=== PATIENT | female | born 1985 | race African-American/Black ===

== ENCOUNTER 2016-12-25 09:05 | Emergency (ER) | payer OTHER ==
--- NOTE | 2016-12-25 09:25 | PHYS DOC ---
Past Medical History Past Medical History: Hypertension Past Surgical History: Cholecystectomy, Additional Past Surgical Histo: (L) WRIST REPAIR Alcohol Use: Rarely Drug Use: None Adult General Chief Complaint Chief Complaint: LOWEREXTREMITY INJURY HPI HPI Patient is a 31 year old female with history of hypertension who presents with left hip pain radiating to the left lower extremity that began today after she fell going down some steps, patient states her left hip went the opposite direction when she fell. Patient describes the pain as sharp. Patient rates the pain as moderate worse on weight bearing. Patient denies any loss of consciousness. Review of Systems Review of Systems Constitutional: Denies fever or chills [] Eyes: Denies change in visual acuity, redness, or eye pain [] HENT: Denies nasal congestion or sore throat [] Respiratory: Denies cough or shortness of breath [] Cardiovascular: No additional information not addressed in HPI [] GI: Denies abdominal pain, nausea, vomiting, bloody stools or diarrhea [] : Denies dysuria or hematuria [] Musculoskeletal: Left hip pain Integument: Denies rash or skin lesions [] Neurologic: Denies headache, focal weakness or sensory changes [] Endocrine: Denies polyuria or polydipsia [] Allergies Allergies Allergies Coded Allergies Type Severity Reaction Last Updated Verified No Known Drug Allergies 06/22/14 No Physical Exam Physical Exam Constitutional: Well developed, well nourished, no acute distress, non-toxic appearance. [] HENT: Normocephalic, atraumatic, bilateral external ears normal, oropharynx moist, no oral exudates, nose normal. [] Eyes: PERRLA, EOMI, conjunctiva normal, no discharge. [] Neck: Normal range of motion, no tenderness, supple, no stridor. [] Cardiovascular:Heart rate regular rhythm, no murmur [] Lungs & Thorax: Bilateral breath sounds clear to auscultation [] Abdomen: Bowel sounds normal, soft, no tenderness, no masses, no pulsatile masses. [] Skin: Warm, dry, no erythema, no rash. [] Back: No tenderness, no CVA tenderness. [] Extremities: Overweight patient, exam very difficult due to her weight. Left hip with no obvious deformity. Tenderness diffusely on the medial and lateral aspect of the left hip. Left knee with no obvious deformity.+2 left pedal pulse. Cap refill less than 2 seconds left lower extremity. Neurologic: Alert and oriented X 3, normal motor function, normal sensory function, no focal deficits noted. [] Psychologic: Affect normal, judgement normal, mood normal. [] Current Patient Data Vital Signs Vital Signs Date Time Temp Pulse Resp B/P (MAP) Pulse Ox O2 Delivery O2 Flow Rate FiO2 12/25/16 09:27 98.7 83 18 98 Room Air 98.7 EKG EKG [] Radiology/Procedures Radiology/Procedures [] Course & Med Decision Making Course & Med Decision Making Pertinent Labs and Imaging studies reviewed. (See chart for details) Patient is in the ED with complaints of left hip pain after falling today. Her blood pressure was 190s/104. Patient states she has her blood pressure medicine in her car. She states she normally takes it on her way to work. She did not take it this morning. Patient states she prefers to take her own medicine so that she doesn't get charged more for medicine in the ED. Left hip and femur x-rays including pelvic interpreted by radiologist are negative for any acute findings. Patient was discharged with naproxen and Flexeril. Follow-up orthopedic doctor in one week. Dragon Disclaimer Dragon Disclaimer This electronic medical record was generated, in whole or in part, using a voice recognition dictation system. Departure Departure Impression: Primary Impression: Fall from standing Additional Impression: Sprain of left hip Disposition: 01 HOME, SELF-CARE Condition: STABLE Referrals: UNKNOWN PCP NAME (PCP) DANIA NICHOLSON II, MD follow up in one week Patient Instructions: Fall Prevention and Home Safety, Hip Exercises, Generic, SportsMed Additional Instructions: You were seen for left hip sprain. Ice and elevate the extremity. Take the prescribed medicines as needed for pain. Do not drive on the cyclobenzaprine. Follow-up with orthopedic doctor provided in one week if pain continues. Scripts Naproxen (NAPROXEN) 500 Mg Tablet. 1 TAB PO BID, #60 TAB 2 Refills Prov: CESARIOSHADIA APRN 12/25/16 Cyclobenzaprine Hcl (CYCLOBENZAPRINE HCL) 10 Mg Tablet 1 TAB PO TID, #30 TAB Prov: SHADIA NASSAR APRN 12/25/16 Problem Qualifiers Primary Impression: Fall from standing Encounter type: initial encounter Qualified Codes: W19.XXXA - Unspecified fall, initial encounter Additional Impression: Sprain of left hip Encounter type: initial encounter Qualified Codes: S73.102A - Unspecified sprain of left hip, initial encounter SHADIA NASSAR [employer] INBOARD/OUTBOARD Dec 25, 2016 09:25
[2016-12-25 09:27] VITALS: BP 195/109
--- NOTE | 2016-12-25 11:02 | RAD ---
Pelvis with left hip, 3 views, 12/25/2016: History: Fall, pain No fracture or dislocation is identified. The hip joints are well maintained. IMPRESSION: No acute abnormality is detected. Left femur, 2 views, 12/25/2016: No fracture is identified. There are moderate degenerative changes at the knee joint and the patellofemoral articulation. IMPRESSION: No acute left femoral abnormality is detected.
[2016-12-25] MEDS ORDERED: CYCL10TA2 PO (11:36)
[2016-12-25] MEDS ORDERED: NAPR500T8 PO (11:36)
== END 2016-12-25 12:11 | disposition home or self-care (01) ==
LOC: ER 09:05
DX: S73.102A Unspecified sprain of left hip, initial encounter (principal); I10 Essential (primary) hypertension; Z90.49 Acquired absence of other specified parts of digestive tract; W10.9XXA Fall (on) (from) unspecified stairs and steps, initial encounter; Y93.89 Activity, other specified; Y92.89 Other specified places as the place of occurrence of the external cause; Y99.8 Other external cause status
CPT/HCPCS: 73502; 73552; 99284

== ENCOUNTER → 2017-09-05 | Outpatient (CLI) | payer OTHER | END | disposition home or self-care (01) | LOC: KCIC US 15:13 | DX: N83.201 Unspecified ovarian cyst, right side (principal); D25.9 Leiomyoma of uterus, unspecified; N88.8 Other specified noninflammatory disorders of cervix uteri; I11.0 Hypertensive heart disease with heart failure; I50.31 Acute diastolic (congestive) heart failure | CPT/HCPCS: 76830; 76856 ==

== ENCOUNTER 2018-05-12 16:58 | Emergency (ER) | payer BC, OTHER ==
[~2018-05-12] VITALS: Ht 175.3 cm; Wt 170.6 kg
[~2018-05-12 16:58] MED LIST: CARV6.2511 PO; CLIN300C8 PO; CYCL10TA2 PO; DIAZ5TAB4 PO; FURO-68 PO; HYDR-2761 PO; LISI10TA2 PO; NAPR500T8 PO; ONDA4TAB10 SL; POTA10TA6 PO
[2018-05-12] MEDS ORDERED: IV NORMAL SALINE 1000ML BAG 1,000 ML IV ONE (17:30)
[2018-05-12] MEDS ORDERED: fentaNYL PF VIAL 100 MCG/2 ML VIAL IV ONE (17:45)
[2018-05-12] MEDS ORDERED: ONDANSETRON PF 4 MG/2 ML VIAL. IV ONE ×2 (17:45→19:00)
[2018-05-12 17:56] LABS: BASO # 0.1 x10^3/uL (0.0-0.2); BASO % 1 % (0-3); EOS # 0.1 x10^3/uL (0.0-0.7); EOS % 1 % (0-3); HEMATOCRIT 36.5 % (36.0-47.0); HEMOGLOBIN 11.9 g/dL (12.0-15.5); LYMPH # 1.7 x10^3/uL (1.0-4.8); LYMPH % 17 % (24-48); MEAN CORPUSCULAR HEMOGLOBIN 23 pg (25-35); MEAN CORPUSCULAR HGB CONC 33 g/dL (31-37); MEAN CORPUSCULAR VOLUME 70 fL (79-100); MONO # 0.3 x10^3/uL (0.0-1.1); MONO % 3 % (0-9); NEUT # 8.2 x10^3uL (1.8-7.7); NEUT % 79 % (31-73); PLATELET COUNT 305 x10^3/uL (140-400); RED BLOOD COUNT 5.21 x10^6/uL (3.50-5.40); RED CELL DISTRIBUTION WIDTH 18.7 % (11.5-14.5); WHITE BLOOD COUNT 10.4 x10^3/uL (4.0-11.0)
[2018-05-12 18:05] LABS: CALCIUM 9.4 mg/dL (8.5-10.1); CREATININE 0.9 mg/dL (0.6-1.0); GFR 86.7; POTASSIUM 3.9 mmol/L (3.5-5.1)
[2018-05-12 18:11] LABS: ALBUMIN 3.5 g/dL (3.4-5.0); ALBUMIN/GLOBULIN RATIO 0.7 (1.0-1.7); TOTAL BILIRUBIN 0.6 mg/dL (0.2-1.0); TOTAL PROTEIN 8.2 g/dL (6.4-8.2)
[2018-05-12] MEDS ORDERED: IOHEXOL 300 MG/ML 100ML VIAL. IV ONE (18:30)
[2018-05-12] MEDS ORDERED: IOHEXOL 240 MG/ML 50ML VIAL. PO ONE (18:30)
[2018-05-12] MEDS ORDERED: CONTRAST GIVEN. MC PRN (18:30)
[2018-05-12 18:55] LABS: BILIRUBIN,URINE NEGATIVE (NEG); CLARITY,URINE CLEAR; COLOR,URINE AMBER; NITRITE,URINE NEGATIVE (NEG); PROTEIN,URINE NEGATIVE (NEG-TRACE)
[2018-05-12 19:03] LABS: BACTERIA,URINE 0 /HPF (0-FEW); SQUAMOUS EPITHELIAL CELL,UR MOD /LPF
[2018-05-12 19:31] LABS: HYPOCHROMIA MOD; PLT ESTIMATE ADEQUATE (ADEQUATE)
[2018-05-12 19:32] LABS: ANISOCYTOSIS SLIGHT; MICROCYTOSIS MOD
[2018-05-12 19:51] LABS: AMYLASE 90 U/L (25-115); LIPASE 209 U/L (73-393)
[2018-05-12 20:15] VITALS: BP 129/70
--- NOTE | 2018-05-12 20:20 | RAD ---
CT SCAN OF THE ABDOMEN AND PELVIS WITH IV CONTRAST. History: Severe epigastric pain and nausea vomiting for 2 weeks Comparison: October 27, 2007. Procedure: Contiguous axial images of the abdomen and pelvis were performed after the administration of 75 cc of Omni 300 IV contrast and oral contrast. CT Abdomen with contrast: Findings: Liver: Unremarkable Spleen: Unremarkable Pancreas: Unremarkable Adrenal Glands: Unremarkable Kidneys: Unremarkable There is no mass or lymphadenopathy. There is no free air. There is no free fluid. There is a comparable study. The appendix is normal. There are multiple mildly enlarged mesenteric and retroperitoneal lymph nodes on the right and there is a lymph node which measures 14 mm in its short axis. CT Pelvis with Contrast: Findings: The urinary bladder appears normal. There is no free fluid. There is no additional lymphadenopathy. Impression: Right-sided lymphadenopathy in the abdomen could be lymphadenitis but appears unchanged. Stable appearance of the abdomen and pelvis. PQRS Compliance Statement: One or more of the following individualized dose reduction techniques were utilized for this examination: 1. Automated exposure control 2. Adjustment of the mA and/or kV according to patient size 3. Use of iterative reconstruction technique Electronically signed by: Juve Moreno III, MD (05/12/2018 8:16 PM) [id number]
[2018-05-12] MEDS ORDERED: ONDA4TAB7 PO (20:35)
--- NOTE | 2018-05-12 20:35 | PHYS DOC ---
Past Medical History Past Medical History: Hypertension Past Surgical History: Cholecystectomy, Additional Past Surgical Histo: (L) WRIST REPAIR Alcohol Use: Rarely Drug Use: None Adult General Chief Complaint Chief Complaint: ABDOMINAL PAIN HPI HPI Patient is a 32 year old [f__sex] who presents with [] Review of Systems Review of Systems Constitutional: Denies fever or chills [] Eyes: Denies change in visual acuity, redness, or eye pain [] HENT: Denies nasal congestion or sore throat [] Respiratory: Denies cough or shortness of breath [] Cardiovascular: No additional information not addressed in HPI [] GI: Denies abdominal pain, nausea, vomiting, bloody stools or diarrhea [] : Denies dysuria or hematuria [] Musculoskeletal: Denies back pain or joint pain [] Integument: Denies rash or skin lesions [] Neurologic: Denies headache, focal weakness or sensory changes [] Endocrine: Denies polyuria or polydipsia [] All other systems were reviewed and found to be within normal limits, except as documented in this note. Current Medications Current Medications Current Medications Medications (Trade) Dose Ordered Sig/Miguel Start Time Stop Time Status Last Admin Dose Admin Fentanyl Citrate (Fentanyl 2ml Vial) 50 mcg 1X ONCE 05/12/18 17:45 05/12/18 17:46 DC 05/12/18 17:55 50 MCG Info (CONTRAST GIVEN -- Rx MONITORING) 1 each PRN DAILY PRN 05/12/18 18:30 05/14/18 18:29 Iohexol (Omnipaque 240 Mg/ml) 30 ml 1X ONCE 05/12/18 18:30 05/12/18 18:31 DC 05/12/18 18:30 30 ML Iohexol (Omnipaque 300 Mg/ml) 75 ml 1X ONCE 05/12/18 18:30 05/12/18 18:31 DC 05/12/18 18:30 75 ML Ondansetron HCl (Zofran) 4 mg 1X ONCE 05/12/18 19:00 05/12/18 19:01 DC 05/12/18 18:57 4 MG Sodium Chloride 1,000 ml @ 1,000 mls/hr 1X ONCE 05/12/18 17:30 05/12/18 18:29 DC 05/12/18 17:54 1,000 MLS/HR Allergies Allergies Allergies Coded Allergies Type Severity Reaction Last Updated Verified No Known Drug Allergies 06/22/14 No Physical Exam Physical Exam Constitutional: Well developed, well nourished, no acute distress, non-toxic appearance. [] HENT: Normocephalic, atraumatic, bilateral external ears normal, oropharynx moist, no oral exudates, nose normal. [] Eyes: PERRLA, EOMI, conjunctiva normal, no discharge. [] Neck: Normal range of motion, no tenderness, supple, no stridor. [] Cardiovascular:Heart rate regular rhythm, no murmur [] Lungs & Thorax: Bilateral breath sounds clear to auscultation [] Abdomen: Bowel sounds normal, soft, no tenderness, no masses, no pulsatile masses. [] Skin: Warm, dry, no erythema, no rash. [] Back: No tenderness, no CVA tenderness. [] Extremities: No tenderness, no cyanosis, no clubbing, ROM intact, no edema. [] Neurologic: Alert and oriented X 3, normal motor function, normal sensory function, no focal deficits noted. [] Psychologic: Affect normal, judgement normal, mood normal. [] Current Patient Data Vital Signs Vital Signs Date Time Temp Pulse Resp B/P (MAP) Pulse Ox O2 Delivery O2 Flow Rate FiO2 05/12/18 17:55 18 96 Room Air 05/12/18 17:16 98.3 117 172/98 (122) 98.3 Lab Values Laboratory Tests Test 05/12/18 17:40 05/12/18 18:45 05/12/18 18:47 White Blood Count 10.4 x10^3/uL (4.0-11.0) Red Blood Count 5.21 x10^6/uL (3.50-5.40) Hemoglobin 11.9 g/dL (12.0-15.5) L Hematocrit 36.5 % (36.0-47.0) Mean Corpuscular Volume 70 fL (79-100) L Mean Corpuscular Hemoglobin 23 pg (25-35) L Mean Corpuscular Hemoglobin Concent 33 g/dL (31-37) Red Cell Distribution Width 18.7 % (11.5-14.5) H Platelet Count 305 x10^3/uL (140-400) Neutrophils (%) (Auto) 79 % (31-73) H Lymphocytes (%) (Auto) 17 % (24-48) L Monocytes (%) (Auto) 3 % (0-9) Eosinophils (%) (Auto) 1 % (0-3) Basophils (%) (Auto) 1 % (0-3) Neutrophils # (Auto) 8.2 x10^3uL (1.8-7.7) H Lymphocytes # (Auto) 1.7 x10^3/uL (1.0-4.8) Monocytes # (Auto) 0.3 x10^3/uL (0.0-1.1) Eosinophils # (Auto) 0.1 x10^3/uL (0.0-0.7) Basophils # (Auto) 0.1 x10^3/uL (0.0-0.2) Platelet Estimate Adequate (ADEQUATE) Hypochromasia Mod Anisocytosis Slight Microcytosis Mod Sodium Level 140 mmol/L (136-145) Potassium Level 3.9 mmol/L (3.5-5.1) Chloride Level 102 mmol/L (98-107) Carbon Dioxide Level 27 mmol/L (21-32) Anion Gap 11 (6-14) Blood Urea Nitrogen 17 mg/dL (7-20) Creatinine 0.9 mg/dL (0.6-1.0) Estimated GFR (Cockcroft-Gault) 86.7 BUN/Creatinine Ratio 19 (6-20) Glucose Level 130 mg/dL (70-99) H Calcium Level 9.4 mg/dL (8.5-10.1) Total Bilirubin 0.6 mg/dL (0.2-1.0) Aspartate Amino Transferase (AST) 263 U/L (15-37) H Alanine Aminotransferase (ALT) 181 U/L (14-59) H Alkaline Phosphatase 139 U/L (46-116) H Total Protein 8.2 g/dL (6.4-8.2) Albumin 3.5 g/dL (3.4-5.0) Albumin/Globulin Ratio 0.7 (1.0-1.7) L Amylase Level 90 U/L (25-115) Lipase 209 U/L (73-393) Urine Collection Type Unknown Urine Color Leora Urine Clarity Clear Urine pH 6.0 Urine Specific [facility] >=1.030 Urine Protein Negative mg/dL (NEG-TRACE) Urine Glucose (UA) Negative mg/dL (NEG) Urine Ketones (Stick) Negative mg/dL (NEG) Urine Blood Large (NEG) Urine Nitrite Negative (NEG) Urine Bilirubin Negative (NEG) Urine Urobilinogen Dipstick 2.0 mg/dL (0.2 mg/dL) Urine Leukocyte Esterase Negative (NEG) Urine RBC 11-20 /HPF (0-2) Urine WBC 1-4 /HPF (0-4) Urine Squamous Epithelial Cells Mod /LPF Urine Bacteria 0 /HPF (0-FEW) Urine Mucus Mod /LPF POC Urine HCG, Qualitative Hcg negative (Negative) Laboratory Tests 05/12/18 17:40 Laboratory Tests 05/12/18 17:40 EKG EKG [] Radiology/Procedures Radiology/Procedures [] Course & Med Decision Making Course & Med Decision Making Pertinent Labs and Imaging studies reviewed. (See chart for details) [] Dragon Disclaimer Dragon Disclaimer This electronic medical record was generated, in whole or in part, using a voice recognition dictation system. Departure Departure Impression: Primary Impression: Nausea & vomiting Additional Impression: Transaminitis Disposition: 01 HOME, SELF-CARE Condition: STABLE Referrals: SHAJI TERRY (PCP) Patient Instructions: Liver Panel, Nausea and Vomiting Additional Instructions: Follow-up with your primary care provider for a recheck of your liver enzymes. Do not take Tylenol. Use the Zofran to increase fluids and rest. If worsening return to the emergency department. Scripts Ondansetron Hcl (ZOFRAN) 4 Mg Tablet 1 TAB PO Q6HRS for nausea, #20 TAB Prov: CHIOMA TODD APRN 05/12/18 Problem Qualifiers CHIOMA TODD APRN May 12, 2018 20:35
== END 2018-05-12 20:42 | disposition home or self-care (01) ==
LOC: ER 16:58
DX: R11.2 Nausea with vomiting, unspecified (principal); R74.0 Nonspecific elevation of levels of transaminase and lactic acid dehydrogenase [LDH]; I10 Essential (primary) hypertension; Z90.49 Acquired absence of other specified parts of digestive tract
CPT/HCPCS: 36415; 74177; 80053; 81001; 81025; 82150; 83690; 85025; 96361; 96374; 96375; 96376; 99284; J2405; J3010; J7030; Q9966; Q9967

== ENCOUNTER → 2018-06-09 | Outpatient (CLI) | payer BC ==
[2018-05-12 20:15] VITALS: BP 129/70
[~2018-06-09] MED LIST changes: +ONDA4TAB7 PO
--- NOTE | 2018-06-09 16:11 | RAD ---
PELVIS W/TV Clinical Indication: menorrhagia with irregular cycle. Comparison: CT abdomen and pelvis with contrast, May 12, 2018. TECHNIQUE: Real-time ultrasound imaging of the pelvis using transabdominal and transvaginal window is performed. Findings: There are a couple of 5 mm nabothian cysts. The uterus is anteverted. The uterus measures 10.8 x 7.6 x 6.5 cm. The myometrium posteriorly is heterogeneous, cannot exclude a fibroid measuring up to 3.5 cm. The endometrial stripe measures 10 mm, normal for patient age. There is normal blood flow in the ovaries. The ovaries are symmetric in size. There is a right follicle measuring 12 mm. No pelvic free fluid is seen. No evidence of adnexal mass. IMPRESSION: 1. The endometrial stripe is normal. 2. Cannot exclude posterior uterine fibroid. 3. Small nabothian cysts. Electronically signed by: Rafat Xiao MD (06/09/2018 4:07 PM) [id number]
== END | disposition home or self-care (01) ==
LOC: US 14:20
PROVIDERS: ATTEND Registered Nurse
DX: N88.8 Other specified noninflammatory disorders of cervix uteri (principal)
CPT/HCPCS: 76830; 76856

== ENCOUNTER → 2018-07-31 | Outpatient (CLI) | payer BC ==
--- NOTE | 2018-07-31 15:59 | CARD ---
MR#: [id number] Date of Study: 07/31/2018 Ordering Physician: MISTY MATUTE, Referring Physician: MISTY MATUTE, Tech: Radha Proctor APPROVED REPORT EXAM: Two-dimensional and M-mode echocardiogram with Doppler and color Doppler. Other Information Quality : AverageHR: 88bpm Rhythm : NSRTechnically limited study due to body habitus. INDICATION Murmur Heart Failure RISK FACTORS Hypertension 2D DIMENSIONS RVDd2.6 (2.9-3.5cm)Left Atrium(2D)3.4 (1.6-4.0cm) IVSd1.2 (0.7-1.1cm)Aortic Root(2D)2.9 (2.0-3.7cm) LVDd5.5 (3.9-5.9cm)LVOT Diameter2.0 (1.8-2.4cm) PWd1.1 (0.7-1.1cm)LVDs3.5 (2.5-4.0cm) FS (%) 36.1 %SV95.3 ml Aortic Valve AoV Peak Robetr.143.6cm/sAoV VTI29.6cm AO Peak GR.8.2mmHgLVOT Peak Robert.114.2cm/s LVOT VTI 26.69cmAO Mean GR.6mmHg ANTHONY (VMAX)1.78or6VDO (VTI)2.83cm2 Mitral Valve MV E Uptvwujo35.7cm/sMV DECEL [id number] MV A Pawstudv27.1cm/sMV ATZ41zn E/A Ratio1.5MVA (PHT)4.07cm2 TDI E/Lateral E'8.2E/Medial E'9.7 Pulmonary Valve PV Peak Zcfwsaiy759.9cm/sPV Peak Grad.5mmHg Tricuspid Valve TR P. Jtumcjud135tv/sRAP QGKEMYDV8xcEz TR Peak Gr.93zvAdFKDB44ovZe Pulmonary Vein S1 Hytrlsdi30.7cm/sD2 Ogemhszd50.3cm/s PVa mqjqjdbv191bubi LEFT VENTRICLE The left ventricle is normal size. There is normal left ventricular wall thickness. The left ventricu lar systolic function is normal and the ejection fraction is within normal range. The Ejection Fracti on is 55-60%. There is normal LV segmental wall motion. Transmitral Doppler flow pattern is Grade II- pseudonormal filling dynamics. RIGHT VENTRICLE The right ventricle is normal size. There is normal right ventricular wall thickness. The right ventr icular systolic function is normal. ATRIA The left atrium size is normal. The right atrium size is normal. The interatrial septum is intact wit h no evidence for an atrial septal defect or patent foramen ovale as noted on 2-D or Doppler imaging. AORTIC VALVE The aortic valve is normal in structure and function. Doppler and Color Flow revealed no significant aortic regurgitation. There is no significant aortic valvular stenosis. MITRAL VALVE The mitral valve is normal in structure and function. There is no evidence of mitral valve prolapse. There is no mitral valve stenosis. Doppler and Color-flow revealed trace mitral regurgitation. TRICUSPID VALVE The tricuspid valve is normal in structure and function. Doppler and Color Flow revealed trace tricus pid regurgitation with an estimated PAP of 34 mmHg. There is no tricuspid valve prolapse or vegetatio n. There is no tricuspid valve stenosis. PULMONIC VALVE The pulmonic valve is not well visualized. Doppler and Color Flow revealed no pulmonic valvular regur gitation. GREAT VESSELS The aortic root is normal in size. The IVC is normal in size and collapses >50% with inspiration. PERICARDIAL EFFUSION There is no evidence of significant pericardial effusion. Critical Notification Critical Value: No <Conclusion> The left ventricle is normal size. The left ventricular systolic function is normal and the ejection fraction is within normal range. The Ejection Fraction is 55-60%. There is no significant aortic valvular stenosis. Doppler and Color Flow revealed no significant aortic regurgitation. Doppler and Color-flow revealed trace mitral regurgitation. Doppler and Color Flow revealed trace tricuspid regurgitation with an estimated PAP of 34 mmHg. Signed by : Misty Matute MD Electronically Approved : 07/31/2018 15:58:54
== END | disposition home or self-care (01) ==
LOC: ECHO 12:51
PROVIDERS: ATTEND Internal Medicine Cardiovascular Disease
DX: I11.0 Hypertensive heart disease with heart failure (principal); I50.32 Chronic diastolic (congestive) heart failure
CPT/HCPCS: 93306

== ENCOUNTER → 2018-10-29 | Outpatient (CLI) | payer BC ==
[~2018-10-29] MED LIST changes: +ACET500T68 PO; +AZIT250T PO; +DOCU-109 PO; +FERR325T14 PO; +GABA300C18 PO; +IBUP-1027 PO; +OXYC1TAB15 PO
[2018-10-29 10:58] LABS: BASO % 1 % (0-3); EOS # 0.1 x10^3/uL (0.0-0.7); EOS % 1 % (0-3); HEMOGLOBIN 10.6 g/dL (12.0-15.5); LYMPH # 2.4 x10^3/uL (1.0-4.8); LYMPH % 31 % (24-48); MEAN CORPUSCULAR HEMOGLOBIN 22 pg (25-35); MEAN CORPUSCULAR HGB CONC 32 g/dL (31-37); MEAN CORPUSCULAR VOLUME 68 fL (79-100); MONO # 0.4 x10^3/uL (0.0-1.1); MONO % 5 % (0-9); NEUT # 4.8 x10^3uL (1.8-7.7); NEUT % 62 % (31-73); PLATELET COUNT 299 x10^3/uL (140-400); RED BLOOD COUNT 4.83 x10^6/uL (3.50-5.40); RED CELL DISTRIBUTION WIDTH 18.3 % (11.5-14.5); WHITE BLOOD COUNT 7.8 x10^3/uL (4.0-11.0)
[2018-10-29 11:39] LABS: PLT ESTIMATE ADEQUATE (ADEQUATE)
[2018-10-29 11:40] LABS: HYPOCHROMIA PRESENT; MICROCYTOSIS PRESENT
--- NOTE | 2018-10-30 10:24 | NUR ---
FAXED PRE-OP CBC REPORT TO 'S OFFICE FOR REVIEW AT 1013 10/30/2018 AND RECEIVED TRANSMITTAL CONFIRMATION.
== END | disposition home or self-care (01) ==
LOC: SURGPAT 09:58
PROVIDERS: ATTEND Obstetrics & Gynecology
DX: Z01.818 Encounter for other preprocedural examination (principal)
CPT/HCPCS: 36415; 85025

== ENCOUNTER 2018-11-05 06:14 | Observation (INO) | payer BC ==
[~2018-11-05] VITALS: Ht 167.6 cm; Wt 161.0 kg
[2018-11-05] VITALS (7 sets, daily range): BP systolic 118–141; BP diastolic 67–77
[~2018-11-05 06:14] MED LIST changes: -AZIT250T PO; +BUPIVACAINE-EPI 0.25%-1:200000 MPF 30 ML VIAL. ONE; -DOCU-109 PO; +ESTROGENS, CONJ VAGINAL CREAM 30GM TUBE. ONE; -GABA300C18 PO; +ISOSULFAN BLUE 50 MG/5 ML VIAL. SQ ONE; +LIDOCAINE 1%/EPI 1:100,000 20 ML VIAL. ONE; -OXYC1TAB15 PO; +SURGICEL HEMOSTAT 4X8 EACH. ONE; +ceFAZolin SODIUM 3 GM in IV DEXTROSE 5% 100ML 100 ML IV PRN
[2018-11-05 06:57] LABS: U PREG PATIENT NEGATIVE (NEG)
[2018-11-05] MEDS ORDERED: ONDANSETRON PF 4 MG/2 ML VIAL. IV PRN ×2 (07:00→11:15)
[2018-11-05] MEDS ORDERED: IV RINGERS,LACTATED 1000ML 1,000 ML IV SCH (07:00)
[2018-11-05] MEDS ORDERED: LIDOCAINE 1% PF 2 ML VIAL. ID PRN (07:00)
[2018-11-05] MEDS ORDERED: HYDROmorphone 2 MG/ML VIAL IV PRN (07:00)
[2018-11-05] MEDS ORDERED: MORPHINE SULFATE 2 MG/ML VIAL. IV PRN (07:00)
[2018-11-05] MEDS ORDERED: PROCHLORPERAZINE 10 MG/2 ML VIAL. IV PRN ×2 (07:00→11:15)
[2018-11-05] MEDS ORDERED: fentaNYL PF VIAL 100 MCG/2 ML VIAL IV PRN (07:00)
[2018-11-05] MEDS ORDERED: NEOSTIGMINE METHYLSULFATE 5 MG/5 ML SYRINGE. ONE (07:26)
[2018-11-05] MEDS ORDERED: SEVOFLURANE > 120 MINUTES. IH ONE (07:26)
[2018-11-05] MEDS ORDERED: ROCURONIUM 100 MG/10 ML VIAL. ONE (07:26)
[2018-11-05] MEDS ORDERED: LIDOCAINE 2% PF 5 ML VIAL. ONE (07:27)
[2018-11-05] MEDS ORDERED: MIDAZOLAM HCL/PF 2 MG/2 ML VIAL. ONE (07:27)
[2018-11-05] MEDS ORDERED: DEXAMETHASONE SOD PHOS 4 MG/ML VIAL ONE (07:27)
[2018-11-05] MEDS ORDERED: fentaNYL PF VIAL 100 MCG/2 ML VIAL ONE ×2 (07:27→08:48)
[2018-11-05] MEDS ORDERED: ONDANSETRON PF 4 MG/2 ML VIAL. ONE (07:27)
[2018-11-05] MEDS ORDERED: GLYCOPYRROLATE 1 MG/5 ML VIAL. ONE (07:27)
[2018-11-05] MEDS ORDERED: PROPOFOL 20 ML IV ONE (07:27)
[2018-11-05] MEDS ORDERED: KETOROLAC 30 MG/ML INJ FOR OR. INJ ONE (07:59)
--- NOTE | 2018-11-05 11:06 | PDOC ---
BRIEF OPERATIVE NOTE Date: Nov 05, 2018 Pre-Op Diagnosis 1. Fibroids 2. Menorrhagia 3. Dysmenorrhea Post-Op Diagnosis SAme Procedure Performed [facility] Surgeon Dr. Maximo Reid Anesthesia Type: General Blood Loss 50 ml Specimens Obtained cervix, uterus, chris. fallopian tubes Findings enlarged, fibroid uterus; nml fallopian tubes and ovaries chris. Complications none Operative Note see dictation MISTY RAHMAN Jr, MD Nov 05, 2018 11:06
[2018-11-05] MEDS ORDERED: KETOROLAC 30 MG/ML VIAL. IV PRN ×3 (11:15→14:00)
[2018-11-05] MEDS ORDERED: diphenhydrAMINE HCL 25 MG CAPSULE PO PRN ×2 (11:15→14:00)
[2018-11-05] MEDS ORDERED: diphenhydrAMINE 50 MG/ML VIAL IV PRN (11:15)
[2018-11-05] MEDS ORDERED: 0.9 % SODIUM CHLORIDE 10 ML DISP.SYRIN. IV PRN (11:15)
[2018-11-05] MEDS ORDERED: DEXTROSE 50% 25 GM / 50ML DISP.SYRIN. IV PRN (11:15)
[2018-11-05] MEDS ORDERED: oxyCODONE/APAP 5/325 1 TAB TABLET PO PRN ×2 (11:15→13:30)
[2018-11-05] MEDS ORDERED: ZOLPIDEM 5 MG TABLET. PO PRN ×2 (11:15→14:00)
[2018-11-05] MEDS ORDERED: CALCIUM CARBONATE 500 MG TAB.CHEW PO PRN ×2 (11:15→14:00)
[2018-11-05] MEDS ORDERED: SIMETHICONE 80 MG TAB.CHEW PO PRN (11:15)
[2018-11-05] MEDS: fentaNYL PF VIAL 100 MCG/2 ML VIAL IV PRN ×2 (11:19→11:39)
--- NOTE | 2018-11-05 11:28 | OP ---
DATE OF SURGERY: PREOPERATIVE DIAGNOSES: 1. Fibroids. 2. Menorrhagia. 3. Dysmenorrhea. POSTOPERATIVE DIAGNOSES: 1. Fibroids. 2. Menorrhagia. 3. Dysmenorrhea. PROCEDURE: LAVH. SURGEON: Misty Marsh MD DESIGN ASSISTANT: Keon Reid. ANESTHESIA: GETA. ESTIMATED BLOOD LOSS: 50 mL. COMPLICATIONS: None. FINDINGS: Enlarged fibroid uterus, normal fallopian tubes and ovaries bilaterally. SUMMARY: The patient presented with fibroids, menorrhagia, dysmenorrhea, unresponsive to medical treatment. She was counseled on the risks, benefits and expectations of total laparoscopic hysterectomy via da Yandy robot. She was counseled on risks, benefits and expectations and voiced clear understanding to proceed. DESCRIPTION OF PROCEDURE: The patient was taken to surgery suite and placed in dorsal lithotomy position. She was prepped with Betadine solution for vaginal prep and ChloraPrep for abdominal prep. After adequate anesthesia, weighted speculum and curved Ruthven placed vaginally. The anterior lip of the cervix grasped with single tooth tenaculum. The Cynthia uterine manipulator was then placed. Single tooth tenaculum, weighted speculum and curved Ruthven were then removed. Attention was now placed on abdomen. Small transverse skin incision made just below the umbilicus with a scalpel. Veress needle was then placed through the infraumbilical incision site. The abdomen was allowed to insufflate up to 2 liters CO2 gas. The Veress needle was then removed. An 8 mm camera port was placed and camera was positioned. There were few abdominal wall adhesions. Uterus was enlarged with multiple fibroids. Fallopian tubes and ovaries appeared normal bilaterally. Incision was made in the right and left lower quadrant with a scalpel in which 8 mm trocars were placed. An accessory port placed. A 5 mm size was placed in the right upper quadrant. The robot was then docked. After docking, however, with placement of the camera and instrumentation, due to the patient's body habitus, it limited maneuverability of the robotic arms. Therefore, decision was made to convert to a laparoscopic-assisted vaginal hysterectomy. The robot was then undocked. We did utilize all [address] With the aid of the EnSeal and graspers, the right round ligament was coagulated and dissected. The right fallopian tube was then coagulated and dissected away from the pelvic sidewall. The right broad ligament was coagulated and dissected down through, including the uterine artery. Same process took place with left adnexa. Bladder flap was created using the EnSeal device along with blunt dissection. The pedicles remained hemostatic. We then proceeded vaginally. Weighted speculum and curved Ruthven placed vaginally and anterior and posterior lip of the cervix were grasped with Domenico clamps. The CYNTHIA uterine manipulator was removed. 1% lidocaine with epinephrine was injected in a circumferential manner. Bovie cautery was utilized to circumscribe the cervix. The vaginal mucosa was then dissected away from the lower uterine segment using blunt dissection with a moist Ray-Neel. The parametrial tissue was clamped bilaterally with curved Deondre clamps, cut, and suture ligated. The posterior cul-de-sac was entered sharply with curved Fernandez scissors. The uterosacral ligaments and cardinal ligaments were clamped bilaterally, cut, and suture ligated. The uterus was then retroverted. There was one additional pedicle that was clamped just adjacent to the lower uterine segment, cut, and suture ligated. The cervix, uterus, bilateral fallopian tubes were then removed in their entirety. A modified Tapia's culdoplasty was performed using 0 Vicryl suture, incorporating the uterosacral ligaments bilaterally. The remainder of the vaginal cuff was reapproximated using 2-0 Vicryl suture in a [id number] manner. Moist vaginal packing was placed. We then proceeded abdominally in which the abdomen was allowed to insufflate up to 2 liters CO2 gas. Scope was positioned. The vaginal cuff was visualized and hemostatic. All pedicles were hemostatic. This was verified with suction irrigation, small amount of normal saline was left in posterior cul-de-sac. The trocars were then removed under direct visualization. The abdomen was allowed to deflate as much as possible along with mechanical manipulation. The four skin incisions were reapproximated using 4-0 Vicryl suture in subcuticular manner. 0.25% Marcaine with epinephrine was injected at each incision site. The patient tolerated the procedure well and was taken to recovery room in stable condition. Sponge and needle count correct x 3. MISTY MARSH MD DR: MILLIE/ct JOB#: [id number] / [id number]
[2018-11-05] MEDS: GABAPENTIN 300 MG CAPSULE. PO SCH (13:50)
[2018-11-05] MEDS: oxyCODONE/APAP 5/325 1 TAB TABLET PO PRN (13:50)
[2018-11-05] MEDS ORDERED: GABAPENTIN 300 MG CAPSULE. PO SCH (14:00)
[2018-11-05] MEDS: ONDANSETRON PF 4 MG/2 ML VIAL. IV PRN (16:26)
[2018-11-05] MEDS: IV RINGERS,LACTATED 1000ML 1,000 ML IV SCH (18:24)
[2018-11-05] MEDS ORDERED: OPIUM/BELLADONNA 30/16.2MG SUPP.RECT. PR PRN (18:30)
[2018-11-05] MEDS ORDERED: PROCHLORPERAZINE 10 MG/2 ML VIAL. IV ONE (18:45)
[2018-11-05] MEDS: MORPHINE SULFATE 2 MG/ML VIAL. IV PRN (19:06)
[2018-11-06] MEDS: GABAPENTIN 300 MG CAPSULE. PO SCH ×3 (00:59→17:15)
[2018-11-06 01:00] VITALS: BP 125/71
[2018-11-06] MEDS: MORPHINE SULFATE 2 MG/ML VIAL. IV PRN ×2 (01:00→07:52)
[2018-11-06] MEDS: IV RINGERS,LACTATED 1000ML 1,000 ML IV SCH ×3 (01:01→08:35)
[2018-11-06] MEDS: ONDANSETRON PF 4 MG/2 ML VIAL. IV PRN (01:06)
[2018-11-06 06:15] VITALS: BP 128/71
--- NOTE | 2018-11-06 08:43 | PDOC ---
SURGICAL PROGRESS NOTE Subjective Pt. feeling well. Pain controlled. Vital Signs Vital Signs Date Time Temp Pulse Resp B/P (MAP) Pulse Ox O2 Delivery O2 Flow Rate FiO2 11/06/18 08:22 20 98 Room Air 8.0 11/06/18 06:15 98.4 97 128/71 (90) 98.4 I&O Intake and Output 11/06/18 07:00 Intake Total 2300 ml Output Total 450 ml Balance 1850 ml Intake IV Total 2300 ml Output Urine Total 300 ml Estimated Blood Loss 150 ml PATIENT HAS A MEZA: No General: Alert, Oriented X3, Cooperative HEENT: Atraumatic Lungs: Clear to auscultation Heart: Regular rate Abdomen: Normal bowel sounds, Soft, No masses Extremities: No edema Psych/Mental Status: Mental status NL Labs Laboratory Tests Test 11/05/18 06:16 Urine Test Negative (NEG) Assessment/Plan A: POD#1 s/p IRENE P: D/c home. MISTY RAHMAN Jr, MD Nov 06, 2018 08:43
[2018-11-06] MEDS ORDERED: DOCU-109 PO (08:46)
[2018-11-06] MEDS ORDERED: GABA300C18 PO (08:46)
--- NOTE | 2018-11-06 08:47 | DISCH ---
DISCHARGE INSTRUCTIONS Condition on Discharge Condition on Discharge: Stable Activity After Discharge Activity Instructions for Disc: Activity as tolerated Lifting Instructions after Dis: No heavy lifting Driving Instructions after Dis: No driving for 2 weeks Weight Bearing Status after Di: As tolerated Diet after Discharge Diet after Discharge: Cardiac, Regular Diet Texture: Regular Liquid Texture: Thin Liquid Swallowing Supervision: None needed Wound Incision Care Wound/Incision Care: No wound care needed Contacting the [facility] after DC Call your doctor for: Concerns you may have Follow-Up Follow up with: Dr. Marsh in 2 weeks. Treatment/Equipment after DC Adaptive Equipment Issued: None MISTY MARSH Jr, MD Nov 06, 2018 08:47
[2018-11-06] MEDS: oxyCODONE/APAP 5/325 1 TAB TABLET PO PRN ×3 (09:11→17:15)
[2018-11-06 11:00] VITALS: BP 125/68
[2018-11-06 16:30] VITALS: BP 140/84
--- NOTE | 2018-11-06 17:06 | PATHOLOGY ---
[facility] Accession Number: [id number] . 01 Material submitted: . uterus - CERVIX, UTERUS, BILATERAL FALLOPIAN TUBES . 01 Clinical history: . Fibroids, dysmenorrhea, menorrhagia. . 02 Diagnosis: Uterus and attached bilateral fallopian tubes, laparoscopic hysterectomy and bilateral salpingectomy: - Adenomyosis, uterine corpus, extensive, with myometrial hypertrophy (uterine weight 175 grams). - Endometrial polyp. - Mild chronic cervicitis with focal squamous metaplasia. - Nabothian cyst and cystic tubal metaplasia of endocervix. - Slightly disordered proliferative endometrium. - Leiomyoma, uterine corpus, measuring 1.3 cm. - Congestion of bilateral fallopian tubes. - Paratubal cysts. (JPM:seng; 11/06/2018) QMS/11/06/2018 . 02 Comment: There is no atypia or evidence of malignancy. (JPM:seng; 11/06/2018) . 02 Electronically signed: . Jeovany Shah MD, Pathologist NPI- [id number] . 01 Gross description: . Received in formalin labeled "Mckee, Valeria, cervix, uterus, bilateral fallopian tubes" is a hysterectomy specimen with attached fallopian tubes. The uterus weighs 175 g and measures 11.3 cm from fundus to cervix, 7.3 cm from cornu to cornu, and 5.7 cm from anterior to posterior. The serosa is pink-baumann and smooth. The cervix/lower uterine segment displays a 2.5 x 0.9 cm partial thickness defect, possibly consistent with a surgical defect, on the posterior aspect. This area is inked black. The ectocervix is pink-baumann and glistening with a slitlike cervical os measuring 1.0 cm. The specimen is opened to reveal a 4.0 x 3.5 cm endometrial cavity and a 2.5 x 0.6 cm endocervical canal. The posterior endometrial cavity displays a prominent pink-baumann polyp measuring 3.2 x 2.0 x 0.8 cm. Upon sectioning, the average endometrial thickness is 0.2 cm and the average myometrial thickness is 2.3 cm. One baumann-white whorled leiomyoma is identified measuring 1.3 cm in greatest dimension. The myometrium is focally trabeculated. The right pink-baumann fimbriated fallopian tube measures 7.3 cm in length and 0.5 cm in diameter and the left pink-baumann fimbriated fallopian tube measures 6.5 cm in length and 0.8 cm in diameter. The external surfaces display multiple thin-walled paratubal cysts ranging from 0.5-0.6 cm in greatest dimension. Upon sectioning, the cut surfaces display pinpoint lumens. [employer] sections of the specimen are submitted as follows: A1 12:00 cervix A2 6:00 cervix and partial thickness defect A3 anterior endomyometrium A4 posterior endomyometrium A5 industrial relations representative leiomyoma A6 industrial relations representative right fallopian tube A7 industrial relations representative left fallopian tube A8 attachment site of the uterine polyp A9 remainder of uterine polyp [place] [place]05[place] SYC/SYC . 02 Pathologist provided ICD-10: N84.0, N72, N88.8, D25.9, N85.9, N83.8 . 02 CPT . 703777 Specimen Comment: A courtesy copy of this report has been sent to Specimen Comment: [phone], . Specimen Comment: Report sent to / DR TERRY Performed at: 01 [facility] [address], [place] [id number] MD Jose Roberto Aleman MD Phone: [phone] Performed at: 02 [facility] [address] [place], [place] [id number] MD Jeovany Shah MD Phone: [phone]
--- NOTE | 2018-11-06 18:06 | NUR ---
pt given discharge instructions and scripts.
== END 2018-11-06 18:17 | disposition home or self-care (01) ==
LOC: SURG 06:14 → 3 NORTH 11:37
PROVIDERS: ADMIT Obstetrics & Gynecology; ATTEND Obstetrics & Gynecology
DX: D25.9 Leiomyoma of uterus, unspecified (principal); N92.0 Excessive and frequent menstruation with regular cycle; N94.6 Dysmenorrhea, unspecified; I10 Essential (primary) hypertension; Z98.890 Other specified postprocedural states
CPT/HCPCS: 36415; 58550; 81025; 86850; 86900; 86901; 96374; 96375; 96376; A7015; G0378; G0379; J0780; J1100; J1885; J2001; J2250; J2270; J2405; J2704; J2710; J3010; J3490; J7030; J7120; 88307; Q9968

== ENCOUNTER 2018-11-09 17:13 | Emergency (ER) | payer BC ==
[~2018-11-09] VITALS: Ht 167.6 cm; Wt 136.1 kg
[~2018-11-09 17:13] MED LIST changes: -BUPIVACAINE-EPI 0.25%-1:200000 MPF 30 ML VIAL. ONE; +DOCU-109 PO; -ESTROGENS, CONJ VAGINAL CREAM 30GM TUBE. ONE; +GABA300C18 PO; -ISOSULFAN BLUE 50 MG/5 ML VIAL. SQ ONE; -LIDOCAINE 1%/EPI 1:100,000 20 ML VIAL. ONE; -SURGICEL HEMOSTAT 4X8 EACH. ONE; -ceFAZolin SODIUM 3 GM in IV DEXTROSE 5% 100ML 100 ML IV PRN
[2018-11-09] MEDS ORDERED: ONDANSETRON PF 4 MG/2 ML VIAL. ONE (19:22)
[2018-11-09] MEDS ORDERED: fentaNYL PF VIAL 100 MCG/2 ML VIAL ONE (19:23)
--- NOTE | 2018-11-09 19:34 | PHYS DOC ---
Past Medical History Past Medical History: Hypertension Past Surgical History: Cholecystectomy, , Hysterectomy Additional Past Surgical Histo: (L) WRIST REPAIR Alcohol Use: Rarely Drug Use: None Adult General Chief Complaint Chief Complaint: ABDOMINAL PAIN HPI HPI Patient is a 33 year old female who presents with complaining of abdominal pain after hysterectomy. Patient had laparoscopic hysterectomy on November 05 and he states that she was discharged home without any pain medication. Patient complaining of gradually increasing abdominal pain as a generalized abdominal aching pain with episodes of sharp and cramping pain since she had her surgery. Patient states the pain getting worse today and rated her pain 10 over 10. Patient states she had nausea at arrival to ER and denies vomiting, constipation, diarrhea, urinary symptoms, fever and chills, anorexia, vaginal bleeding, chest pain and shortness of breath. Review of Systems Review of Systems Constitutional: Denies fever or chills [] Eyes: Denies change in visual acuity, redness, or eye pain [] HENT: Denies nasal congestion or sore throat [] Respiratory: Denies cough or shortness of breath [] Cardiovascular: No additional information not addressed in HPI [] GI: Reports abdominal pain, nausea, denies vomiting, bloody stools or diarrhea [] : Denies dysuria or hematuria [] Musculoskeletal: Denies back pain or joint pain [] Integument: Denies rash or skin lesions [] Neurologic: Denies headache, focal weakness or sensory changes [] Endocrine: Denies polyuria or polydipsia [] All other systems were reviewed and found to be within normal limits, except as documented in this note. Current Medications Current Medications Current Medications Medications (Trade) Dose Ordered Sig/Miguel Start Time Stop Time Status Last Admin Dose Admin Ceftriaxone Sodium (Rocephin) 1 gm 1X ONCE 11/09/18 23:30 11/09/18 23:31 DC 11/09/18 23:30 1 GM Fentanyl Citrate (Fentanyl 2ml Vial) 50 mcg 1X ONCE 11/09/18 22:15 11/09/18 22:16 DC 11/09/18 22:50 50 MCG Info (CONTRAST GIVEN -- Rx MONITORING) 1 each PRN DAILY PRN 11/09/18 22:30 11/10/18 00:14 DC Iohexol (Omnipaque 300 Mg/ml) 75 ml 1X ONCE 11/09/18 20:15 11/09/18 20:16 DC Iohexol (Omnipaque 350 Mg/ml) 100 ml 1X ONCE 11/09/18 22:30 11/09/18 22:31 DC 11/09/18 22:32 100 ML Ondansetron HCl (Zofran) 4 mg 1X ONCE 11/09/18 20:15 11/09/18 20:16 DC 11/09/18 19:24 4 MG Allergies Allergies Allergies Coded Allergies Type Severity Reaction Last Updated Verified No Known Drug Allergies 06/22/14 No Physical Exam Physical Exam Constitutional: Well developed, well nourished, moderate distress, non-toxic appearance, morbidly obese. [] HENT: Normocephalic, atraumatic, oropharynx moist. Eyes: PERRLA, EOMI, conjunctiva normal, no discharge. [] Neck: Normal range of motion, no tenderness, supple, no stridor. [] Cardiovascular:Heart rate regular rhythm, no murmur [] Lungs & Thorax: Bilateral breath sounds clear to auscultation [] Abdomen: Bowel sounds normal, soft, no tenderness, no masses, no pulsatile masses. [] Skin: Warm, dry, no erythema, no rash. [] Back: No tenderness, no CVA tenderness. [] Extremities: No tenderness, no cyanosis, no clubbing, ROM intact, no edema. [] Neurologic: Alert and oriented X 3, normal motor function, normal sensory function, no focal deficits noted. [] Psychologic: Affect normal, judgement normal, mood normal. [] Current Patient Data Vital Signs Vital Signs Date Time Temp Pulse Resp B/P (MAP) Pulse Ox O2 Delivery O2 Flow Rate FiO2 11/09/18 23:55 98 18 132/70 (90) 100 Room Air 11/09/18 18:50 99.2 99.2 Lab Values Laboratory Tests Test 11/09/18 18:35 11/09/18 18:50 11/09/18 19:00 11/09/18 20:30 Urine Collection Type Void Urine Color Yellow Urine Clarity Clear Urine pH 6.5 Urine Specific [place] 1.020 Urine Protein Negative mg/dL (NEG-TRACE) Urine Glucose (UA) Negative mg/dL (NEG) Urine Ketones (Stick) Negative mg/dL (NEG) Urine Blood Negative (NEG) Urine Nitrite Negative (NEG) Urine Bilirubin Negative (NEG) Urine Urobilinogen Dipstick 1.0 mg/dL (0.2 mg/dL) Urine Leukocyte Esterase Moderate (NEG) Urine RBC Rare /HPF (0-2) Urine WBC 1-4 /HPF (0-4) Urine Squamous Epithelial Cells Many /LPF Urine Bacteria Many /HPF (0-FEW) Urine Mucus Marked /LPF POC Urine HCG, Qualitative Hcg negative (Negative) Prothrombin Time 13.1 SEC (11.7-14.0) Prothrombin Time INR 1.0 (0.8-1.1) White Blood Count 13.5 x10^3/uL (4.0-11.0) H Red Blood Count 4.73 x10^6/uL (3.50-5.40) Hemoglobin 10.4 g/dL (12.0-15.5) L Hematocrit 32.3 % (36.0-47.0) L Mean Corpuscular Volume 68 fL (79-100) L Mean Corpuscular Hemoglobin 22 pg (25-35) L Mean Corpuscular Hemoglobin Concent 32 g/dL (31-37) Red Cell Distribution Width 18.1 % (11.5-14.5) H Platelet Count 338 x10^3/uL (140-400) Neutrophils (%) (Auto) 84 % (31-73) H Lymphocytes (%) (Auto) 14 % (24-48) L Monocytes (%) (Auto) 2 % (0-9) Eosinophils (%) (Auto) 0 % (0-3) Basophils (%) (Auto) 0 % (0-3) Neutrophils # (Auto) 11.3 x10^3uL (1.8-7.7) H Lymphocytes # (Auto) 1.9 x10^3/uL (1.0-4.8) Monocytes # (Auto) 0.3 x10^3/uL (0.0-1.1) Eosinophils # (Auto) 0.0 x10^3/uL (0.0-0.7) Basophils # (Auto) 0.0 x10^3/uL (0.0-0.2) Platelet Estimate Adequate (ADEQUATE) Hypochromasia Slight Anisocytosis Slight Microcytosis Marked Macrocytosis Sodium Level 135 mmol/L (136-145) L Potassium Level 4.5 mmol/L (3.5-5.1) Chloride Level 100 mmol/L (98-107) Carbon Dioxide Level 28 mmol/L (21-32) Anion Gap 7 (6-14) Blood Urea Nitrogen 14 mg/dL (7-20) Creatinine 1.1 mg/dL (0.6-1.0) H Estimated GFR (Cockcroft-Gault) 68.4 BUN/Creatinine Ratio 13 (6-20) Glucose Level 119 mg/dL (70-99) H Calcium Level 9.0 mg/dL (8.5-10.1) Total Bilirubin 0.5 mg/dL (0.2-1.0) Aspartate Amino Transferase (AST) 11 U/L (15-37) L Alanine Aminotransferase (ALT) 17 U/L (14-59) Alkaline Phosphatase 97 U/L (46-116) Creatine Kinase 36 U/L (26-192) Total Protein 7.4 g/dL (6.4-8.2) Albumin 3.3 g/dL (3.4-5.0) L Albumin/Globulin Ratio 0.8 (1.0-1.7) L Lipase 93 U/L (73-393) Laboratory Tests 11/09/18 20:30 Laboratory Tests 11/09/18 20:30 EKG EKG [] Radiology/Procedures Radiology/Procedures [facility] [address] [place] [address] IMAGING REPORT Signed PATIENT: KIKE PABLO ACCOUNT: [id number] : 1985 LOCATION: ER AGE: 33 SEX: F EXAM STATUS: REG ER ORD. PHYSICIAN: TODD ZAMORA MD REASON: obese, recent hysterectomy, tachycardia PROCEDURE: CT ANGIOGRAPHY CHEST Chest CTA History: Obesity, recent hysterectomy, tachycardia Technique: After bolus of intravenous contrast, CT imaging was performed of the chest. Multiplanar reconstruction images to include MIP reconstruction images are submitted. Exposure: One or more of the following individualized dose reduction techniques were utilized for this examination: 1. Automated exposure control 2. Adjustment of the mA and/or kV according to patient size 3. Use of iterative reconstruction technique. Comparison: None Findings: Exam is limited for evaluation for pulmonary embolic disease due to poor contrast bolus in the pulmonary arteries and there is some motion degradation. No significant central pulmonary embolism is identified although otherwise cannot accurately evaluate for more distal and smaller pulmonary emboli on this exam. There is mild left lower lobe infiltrate, also mild right lower lobe atelectasis. There is no significant pleural or pericardial fluid or pneumothorax. Thoracic aortic caliber is within normal limits without convincing intraluminal flap allowing for artifact. Impression: 1. No convincing central pulmonary embolism is identified although limited evaluation for smaller and distal pulmonary emboli on this exam. 2. There is mild left lower lobe infiltrate, mild right lower lobe atelectasis. Electronically signed by: Osmar Weiss MD (11/09/2018 10:53 PM) [facility] DICTATED and SIGNED BY: OSMAR WEISS MD DATE: 11/09/18 2253 [facility] [address] [place] [address] IMAGING REPORT Signed PATIENT: KIKE PABLO ACCOUNT: [id number] : 1985 LOCATION: ER AGE: 33 SEX: F EXAM STATUS: REG ER ORD. PHYSICIAN: TODD ZAMORA MD REASON: abdominal pain after hysterectomy PROCEDURE: CT ABDOMEN PELVIS WO CONTRAST CT scan of the abdomen and pelvis without contrast 11/09/2018 CLINICAL HISTORY: Abdominal pain. History of recent hysterectomy. TECHNIQUE: Unenhanced, contiguous, 2 mm axial sections were obtained through the abdomen and pelvis. One or more of the following individualized dose reduction techniques were utilized for this study: 1. Automated exposure control. 2. Adjustment of the mA and/or kV according to patient size. 3. Use of iterative reconstruction technique. FINDINGS: Comparison study is dated 05/12/2018. Images through the lung bases demonstrate areas of subsegmental atelectasis involving both lower lobes, left greater than right. The liver, spleen, pancreas, adrenal glands and left kidney are within normal limits. Nonobstructing calculi are seen involving the right kidney which measure 2 to 6 mm in size. Surgical clips are seen within the gallbladder fossa consistent with a cholecystectomy. The abdominal aorta tapers normally. No free fluid or free air is seen within the abdomen. There is no evidence of bowel obstruction. Air and stool is seen throughout the colon. The appendix is well-visualized and is within normal limits. Areas of subcutaneous emphysema are seen scattered throughout the anterior abdominal wall consistent with the patient's history of recent surgery. Images through the pelvis demonstrate the urinary bladder distended with urine. The uterus is not visualized consistent with a hysterectomy. Small collections of air are seen within the lower pelvis. No significant hematoma or definite abnormal fluid collection is seen. Minimal S-shaped curvature of the thoracolumbar spine is seen. Degenerative changes are seen involving lower thoracic and throughout the lumbar spine and both hips. IMPRESSION: Findings are seen consistent with patient's history of recent hysterectomy. No significant acute abnormality is seen. Electronically signed by: Lee Navarro MD (11/09/2018 9:14 PM) [facility] DICTATED and SIGNED BY: LEE NAVARRO MD DATE: 11/09/182113 Course & Med Decision Making Course & Med Decision Making Pertinent Labs and Imaging studies reviewed. (See chart for details) Evaluation of patient in ER showed 33-year-old female patient with complaining of abdominal pain after hysterectomy few days ago that having any pain medication at home. Patient had unremarkable labs and CT of abdomen and pelvis. Patient had heart rate of 110 while she was in ER that did not get better with pain medication. Chest CT angio did not show PE but shows small infiltration of patient treated with Rocephin and prescription for Zithromax was given. Angy ent's surgeon Dr. Marsh consulted and informed about the test result at 0 and agreed with discharging patient home with prescription of pain medication. I've spoken with the patient and/or caregivers. I've explained the patient's condition, diagnosis and treatment plan based on information available to me at this time. I've answered the patient's and/or caregivers questions and addressed any concerns. The patient and/or caregivers have a good understanding the patient's diagnosis, condition and treatment plan as can be expected at this point. Vital signs have been stabilized. The patient's condition is stable for discharge from the emergency department. The patient will pursue further outpatient evaluation with her primary care provider or other designated consulting physician as outlined in the discharge instructions. Patient and/or caregivers are agreeable to this plan of care and follow-up instructions have been explained in detail. The patient and/or caregivers have received these instructions in written format and expressed understanding of these discharge instructions. The patient and her caregivers are aware that if any significant change in condition or worsening of symptoms should prompt him to immediately return to this of the closest emergency department. If an emergent department is not readily available I would encourage him to call 911. [place] Disclaimer Dragon Disclaimer This electronic medical record was generated, in whole or in part, using a voice recognition dictation system. Departure Departure Impression: Primary Impression: Acute postoperative abdominal pain Additional Impressions: Pneumobilia Morbid obesity Anemia Disposition: HOME, SELF-CARE (At 2324) Condition: IMPROVED Referrals: SHAJI TERRY (PCP) Patient Instructions: Abdominal Pain, Pneumonia, Adult Additional Instructions: Drink plenty of liquids Follow-up with your surgeon in 3-5 days Return to ER if not getting better Scripts Oxycodone/Apap 5-325 (PERCOCET 5-325 MG TABLET ) 1 Each Tablet 1 TAB PO PRN Q6HRS PRN for PAIN, #12 TAB 0 Refills Prov: TODD ZAMORA MD 11/09/18 Azithromycin (ZITHROMAX) 250 Mg Tablet 1 PKG PO UD for infection, #1 PKG Prov: TODD ZAMORA MD 11/09/18 Critical Care Time Critical care time was 90 minutes exclusive of procedures. Problem Qualifiers Additional Impressions: Anemia Anemia type: unspecified type Qualified Codes: D64.9 - Anemia, unspecified TODD ZAMORA MD Nov 09, 2018 19:34
[2018-11-09 19:37] LABS: BILIRUBIN,URINE NEGATIVE (NEG); CLARITY,URINE CLEAR; COLOR,URINE YELLOW; NITRITE,URINE NEGATIVE (NEG); PH,URINE 6.5; PROTEIN,URINE NEGATIVE (NEG-TRACE)
[2018-11-09 19:44] LABS: PROTHROMBIN TIME PATIENT 13.1 SEC (11.7-14.0)
[2018-11-09 19:52] LABS: BACTERIA,URINE MANY /HPF (0-FEW); RBC,URINE RARE /HPF (0-2); SQUAMOUS EPITHELIAL CELL,UR MANY /LPF
[2018-11-09] MEDS ORDERED: fentaNYL PF VIAL 100 MCG/2 ML VIAL IV ONE ×2 (20:00→22:15)
[2018-11-09] MEDS ORDERED: CONTRAST GIVEN. MC PRN ×2 (20:00→22:30)
[2018-11-09] MEDS ORDERED: IOHEXOL 300 MG/ML 100ML VIAL. IV ONE (20:15)
[2018-11-09] MEDS ORDERED: ONDANSETRON PF 4 MG/2 ML VIAL. IV ONE (20:15)
[2018-11-09 20:38] LABS: BASO % 0 % (0-3); EOS % 0 % (0-3); HEMATOCRIT 32.3 % (36.0-47.0); HEMOGLOBIN 10.4 g/dL (12.0-15.5); LYMPH # 1.9 x10^3/uL (1.0-4.8); LYMPH % 14 % (24-48); MEAN CORPUSCULAR HEMOGLOBIN 22 pg (25-35); MEAN CORPUSCULAR HGB CONC 32 g/dL (31-37); MEAN CORPUSCULAR VOLUME 68 fL (79-100); MONO # 0.3 x10^3/uL (0.0-1.1); MONO % 2 % (0-9); NEUT # 11.3 x10^3uL (1.8-7.7); NEUT % 84 % (31-73); PLATELET COUNT 338 x10^3/uL (140-400); RED BLOOD COUNT 4.73 x10^6/uL (3.50-5.40); RED CELL DISTRIBUTION WIDTH 18.1 % (11.5-14.5); WHITE BLOOD COUNT 13.5 x10^3/uL (4.0-11.0)
[2018-11-09 20:55] LABS: ANISOCYTOSIS SLIGHT; HYPOCHROMIA SLIGHT; MICROCYTOSIS MARKED; PLT ESTIMATE ADEQUATE (ADEQUATE)
[2018-11-09 20:58] LABS: CREATININE 1.1 mg/dL (0.6-1.0); GFR 68.4; POTASSIUM 4.5 mmol/L (3.5-5.1)
[2018-11-09 21:13] LABS: ALBUMIN 3.3 g/dL (3.4-5.0); ALBUMIN/GLOBULIN RATIO 0.8 (1.0-1.7); TOTAL BILIRUBIN 0.5 mg/dL (0.2-1.0); TOTAL PROTEIN 7.4 g/dL (6.4-8.2)
--- NOTE | 2018-11-09 21:17 | RAD ---
CT scan of the abdomen and pelvis without contrast 11/09/2018 CLINICAL HISTORY: Abdominal pain. History of recent hysterectomy. TECHNIQUE: Unenhanced, contiguous, 2 mm axial sections were obtained through the abdomen and pelvis. One or more of the following individualized dose reduction techniques were utilized for this study: 1. Automated exposure control. 2. Adjustment of the mA and/or kV according to patient size. 3. Use of iterative reconstruction technique. FINDINGS: Comparison study is dated 05/12/2018. Images through the lung bases demonstrate areas of subsegmental atelectasis involving both lower lobes, left greater than right. The liver, spleen, pancreas, adrenal glands and left kidney are within normal limits. Nonobstructing calculi are seen involving the right kidney which measure 2 to 6 mm in size. Surgical clips are seen within the gallbladder fossa consistent with a cholecystectomy. The abdominal aorta tapers normally. No free fluid or free air is seen within the abdomen. There is no evidence of bowel obstruction. Air and stool is seen throughout the colon. The appendix is well-visualized and is within normal limits. Areas of subcutaneous emphysema are seen scattered throughout the anterior abdominal wall consistent with the patient's history of recent surgery. Images through the pelvis demonstrate the urinary bladder distended with urine. The uterus is not visualized consistent with a hysterectomy. Small collections of air are seen within the lower pelvis. No significant hematoma or definite abnormal fluid collection is seen. Minimal S-shaped curvature of the thoracolumbar spine is seen. Degenerative changes are seen involving lower thoracic and throughout the lumbar spine and both hips. IMPRESSION: Findings are seen consistent with patient's history of recent hysterectomy. No significant acute abnormality is seen. Electronically signed by: Lee Navarro MD (11/09/2018 9:14 PM) [facility]
[2018-11-09] MEDS ORDERED: IOHEXOL 350 MG/ML 100 ML VIAL. IV ONE (22:30)
--- NOTE | 2018-11-09 22:56 | RAD ---
Chest CTA History: Obesity, recent hysterectomy, tachycardia Technique: After bolus of intravenous contrast, CT imaging was performed of the chest. Multiplanar reconstruction images to include MIP reconstruction images are submitted. Exposure: One or more of the following individualized dose reduction techniques were utilized for this examination: 1. Automated exposure control 2. Adjustment of the mA and/or kV according to patient size 3. Use of iterative reconstruction technique. Comparison: None Findings: Exam is limited for evaluation for pulmonary embolic disease due to poor contrast bolus in the pulmonary arteries and there is some motion degradation. No significant central pulmonary embolism is identified although otherwise cannot accurately evaluate for more distal and smaller pulmonary emboli on this exam. There is mild left lower lobe infiltrate, also mild right lower lobe atelectasis. There is no significant pleural or pericardial fluid or pneumothorax. Thoracic aortic caliber is within normal limits without convincing intraluminal flap allowing for artifact. Impression: 1. No convincing central pulmonary embolism is identified although limited evaluation for smaller and distal pulmonary emboli on this exam. 2. There is mild left lower lobe infiltrate, mild right lower lobe atelectasis. Electronically signed by: Tom Weiss MD (11/09/2018 10:53 PM) [facility]
[2018-11-09] MEDS ORDERED: OXYC1TAB15 PO (23:29)
[2018-11-09] MEDS ORDERED: AZIT250T PO (23:29)
[2018-11-09] MEDS ORDERED: cefTRIAXone IV Push 1 GM VIAL. IVP ONE (23:30)
[2018-11-09 23:55] VITALS: BP 132/70
== END 2018-11-10 | disposition home or self-care (01) ==
LOC: ER 17:13
DX: G89.18 Other acute postprocedural pain (principal); E66.01 Morbid (severe) obesity due to excess calories; D64.9 Anemia, unspecified; R11.0 Nausea; K83.8 Other specified diseases of biliary tract; I10 Essential (primary) hypertension; Z90.49 Acquired absence of other specified parts of digestive tract; Z90.710 Acquired absence of both cervix and uterus; Z98.890 Other specified postprocedural states
CPT/HCPCS: 36415; 71275; 74176; 80053; 81001; 81025; 82550; 83690; 85025; 85610; 87086; 96374; 96375; 96376; 99285; J0696; J2405; J3010; Q9967